=== PATIENT | male | born 1950 | race Caucasian/White ===

== ENCOUNTER 2017-07-21 17:27 | Inpatient (IN) | payer OTHER ==
[~2017-07-21] VITALS: Ht 180.3 cm; Wt 94.3 kg
[2017-07-21 17:35] LABS: BASE EXCESS -5.6 mEq/L (-3 to +3); BICARBONATE 27.3 mEq/L (22-26); CARBOXY HGB 1.2 % (0-5); COMMENTS - BLOOD GASES A+B+; DEVICE VENT; METHEMOGLOBIN 0.8 % (0-1.5); PCO2 90 mm Hg (35-45); PO2 115 mm Hg (80-100); SITE LR; pH 7.09 (7.35-7.45)
[2017-07-21 17:36] LABS: FI02 100 %; PEEP 5 CM/H20; PRES. SUPPORT 15 CM/H2O; TOTAL RESP RATE 31 resp/min
[2017-07-21 17:47] LABS: BASOPHIL (%) 0.2 % (0-1); BASOPHIL COUNT 0.1 K/uL (0-0.1); EOSINOPHIL (%) 1.2 % (0-5); EOSINOPHIL COUNT 0.2 K/uL (0-0.3); HEMATOCRIT 52.1 % (38.0-50.0); HEMOGLOBIN 17.1 G/DL (12.5-16.6); IMMATURE GRANULOCYTE (%) 0.6 % (0.0-0.7); LYMPHOCYTE (%) 14.3 % (15-42); LYMPHOCYTE COUNT 2.9 K/uL (1.0-2.8); MCH 29.4 PG (29.0-34.0); MCHC 32.8 G/DL (30.0-36.0); MCV 89.7 FL (86-99); MONOCYTE (%) 8.3 % (3-12); MONOCYTE COUNT 1.7 K/uL (0-0.8); NEUTROPHIL (%) 75.4 % (45-76); NEUTROPHIL COUNT 15.4 K/uL (1.8-6.4); PLATELET COUNT 186 K/uL (156-360); RBC DIS.WIDTH-CV 13.1 % (11.8-14.6); RBC DIS.WIDTH-SD 42.9 % (39-53); RED BLOOD COUNT 5.81 M/uL (4.00-5.50); WHITE BLOOD COUNT 20.5 K/uL (4.1-10.2)
[2017-07-21 18:07] LABS: TROP-I INTERPRETATION POSITIVE
[2017-07-21 18:12] LABS: TROPONIN-I 1.23 ng/mL (0.0-0.30)
[2017-07-21 18:15] LABS: CHLORIDE 102 mEq/L (99-109)
[2017-07-21 18:16] LABS: SODIUM 134 mEq/L (136-147)
[2017-07-21 18:17] LABS: GLUCOSE 207 mg/dL (70-99)
[2017-07-21 18:21] LABS: CREATININE 1.3 mg/dL (0.6-1.3); GFR ESTIMATE (CALCULATED) > 59 mL/min/ (58.99-99999)
[2017-07-21 18:22] LABS: UREA NITROGEN (BUN) 23 mg/dL (9-23)
[2017-07-21 18:23] LABS: POTASSIUM 6.1 mEq/L (3.7-5.4)
[2017-07-21 21:00] VITALS: BP 100/60
[2017-07-21 21:30] VITALS: BP 112/61
[2017-07-21 21:45] LABS: INTER. NORMALIZED RATIO 1.4
[2017-07-21 21:58] LABS: PTT 142.1 SEC (25-37)
[2017-07-21 22:00] VITALS: BP 111/58
[2017-07-21 22:30] VITALS: BP 107/60
[2017-07-21 22:45] LABS: BASE EXCESS -2.3 mEq/L (-3 to +3); BICARBONATE 24.2 mEq/L (22-26); CARBOXY HGB 0.6 % (0-5); DEVICE 980; FI02 100 %; MECHANICAL RATE 18 resp/min; METHEMOGLOBIN 1.3 % (0-1.5); MODE AC; PCO2 47 mm Hg (35-45); PEEP 6 CM/H20; PO2 458 mm Hg (80-100); SITE R ALINE; TIDAL VOLUME 540 ML; TOTAL RESP RATE 18 resp/min; pH 7.32 (7.35-7.45)
[2017-07-21 23:00] VITALS: BP 108/57
[2017-07-21 23:30] VITALS: BP 105/61
[2017-07-22] VITALS (28 sets, daily range): BP systolic 0–152; BP diastolic 0–73
[2017-07-22 00:58] LABS: CREATINE KINASE 812 IU/L (1-294); TOTAL CK 812 IU/L (1-294)
[2017-07-22 01:07] LABS: TROP-I INTERPRETATION POSITIVE; TROPONIN-I 35.09 ng/mL (0.0-0.30)
[2017-07-22 01:08] LABS: CK-MB 46.5 ng/mL (0.0-4.9); CKMB RELATIVE INDEX 5.7 (0.0-3.9)
[2017-07-22 05:08] LABS: BASE EXCESS -3.9 mEq/L (-3 to +3); BICARBONATE 21.6 mEq/L (22-26); CARBOXY HGB 0.8 % (0-5); METHEMOGLOBIN 1.6 % (0-1.5); pH 7.34 (7.35-7.45)
[2017-07-22 05:09] LABS: COMMENTS - BLOOD GASES C+A+; DEVICE VENTILATOR; FI02 30 %; MECHANICAL RATE 18 resp/min; MODE A/C; PCO2 40 mm Hg (35-45); PEEP 5 CM/H20; PO2 94 mm Hg (80-100); SITE R FEMORAL A LINE; TIDAL VOLUME 540 ML; TOTAL RESP RATE 20 resp/min
[2017-07-22 06:32] LABS: TROP-I INTERPRETATION POSITIVE; TROPONIN-I 26.43 ng/mL (0.0-0.30)
[2017-07-22 06:49] LABS: BASOPHIL (%) 0.1 % (0-1); CHLORIDE 106 MEQ/L (99-109); CREATINE KINASE 653 IU/L (1-294); CREATININE 1.4 MG/DL (0.6-1.3); EOSINOPHIL (%) 0 % (0-5); GFR ESTIMATE (CALCULATED) 54 mL/min/ (58.99-99999); GLUCOSE 243 mg/dL (70-99); HDL CHOLESTEROL 24 MG/DL (Desirable>=40); HEMATOCRIT 40.7 % (38.0-50.0); HEMOGLOBIN 13.1 G/DL (12.5-16.6); IMMATURE GRANULOCYTE (%) 0.7 % (0.0-0.7); LDL CHOLESTEROL 95 mg/dL (Desirable<100); LYMPHOCYTE (%) 5.6 % (15-42); LYMPHOCYTE COUNT 0.8 K/uL (1.0-2.8); MAGNESIUM 1.8 mg/dl (1.3-2.7); MCH 28.5 PG (29.0-34.0); MCHC 32.2 G/DL (30.0-36.0); MCV 88.5 FL (86-99); MONOCYTE (%) 3.6 % (3-12); MONOCYTE COUNT 0.5 K/uL (0-0.8); NEUTROPHIL COUNT 12.3 K/uL (1.8-6.4); NON-HDL CHOLESTEROL 114 mg/dL (Desirable<160); PHOSPHORUS 3.6 mg/dL (2.5-4.9); PLATELET COUNT 141 K/uL (156-360); RBC DIS.WIDTH-CV 12.9 % (11.8-14.6); RBC DIS.WIDTH-SD 41.8 % (39-53); SODIUM 137 MEQ/L (136-147); TOTAL CHOLESTEROL 138 mg/dL (Desirable<200); TOTAL CK 653 IU/L (1-294); TRIGLYCERIDES 94 MG/DL (Normal: <150); UREA NITROGEN (BUN) 25 mg/dL (9-23); WHITE BLOOD COUNT 13.7 K/uL (4.1-10.2)
[2017-07-22 06:51] LABS: POTASSIUM 4.5 MEQ/L (3.7-5.4)
[2017-07-22 07:09] LABS: Estimated Average Glucose 134 mg/dL (70-123); HEMOGLOBIN A1c (GLYCOHEMOGLOB) 6.3 % HGB (Below 5.7)
[2017-07-22 08:25] LABS: CK-MB 45.8 ng/mL (0.0-4.9)
[2017-07-22] MEDS ORDERED: FLOMAX0.4 MG PO (12:19)
[2017-07-22] MEDS ORDERED: CELEXA10 MG PO (12:20)
[2017-07-22] MEDS ORDERED: ERGOCALCIF50000 UNIT PO (12:20)
[2017-07-22] MEDS ORDERED: PRINIVIL10 MG PO (12:21)
[2017-07-22] MEDS ORDERED: LYRICA75 MG PO (12:23)
[2017-07-22] MEDS ORDERED: METFORMIN HCL500 MG PO (12:23)
[2017-07-22 13:05] LABS: CREATINE KINASE 486 IU/L (1-294); TOTAL CK 486 IU/L (1-294)
[2017-07-22 13:08] LABS: TROP-I INTERPRETATION POSITIVE; TROPONIN-I 16.46 ng/mL (0.0-0.30)
[2017-07-22 13:43] LABS: CK-MB 35.4 ng/mL (0.0-4.9); CKMB RELATIVE INDEX 7.3 (0.0-3.9)
[2017-07-23] VITALS (24 sets, daily range): BP systolic 84–187; BP diastolic 51–103
[2017-07-23 04:59] LABS: BASE EXCESS -1.5 mEq/L (-3 to +3); BICARBONATE 23.7 mEq/L (22-26); CARBOXY HGB 0.6 % (0-5); COMMENTS - BLOOD GASES C+A+; DEVICE VENTILATOR; FI02 30 %; MECHANICAL RATE 18 resp/min; METHEMOGLOBIN 1.3 % (0-1.5); MODE AC; PCO2 41 mm Hg (35-45); PEEP 5 CM/H20; PO2 71 mm Hg (80-100); SITE LR; TIDAL VOLUME 540 ML; TOTAL RESP RATE 22 resp/min; pH 7.37 (7.35-7.45)
[2017-07-23 06:04] LABS: BASOPHIL (%) 0.1 % (0-1); EOSINOPHIL (%) 0 % (0-5); HEMATOCRIT 39.7 % (38.0-50.0); HEMOGLOBIN 12.7 G/DL (12.5-16.6); IMMATURE GRANULOCYTE (%) 0.4 % (0.0-0.7); LYMPHOCYTE COUNT 0.9 K/uL (1.0-2.8); MCH 28.6 PG (29.0-34.0); MCV 89.4 FL (86-99); MONOCYTE (%) 3.8 % (3-12); MONOCYTE COUNT 0.4 K/uL (0-0.8); NEUTROPHIL (%) 87.7 % (45-76); NEUTROPHIL COUNT 10.1 K/uL (1.8-6.4); PLATELET COUNT 116 K/uL (156-360); RBC DIS.WIDTH-CV 13.1 % (11.8-14.6); RBC DIS.WIDTH-SD 43.2 % (39-53); RED BLOOD COUNT 4.44 M/uL (4.00-5.50); WHITE BLOOD COUNT 11.5 K/uL (4.1-10.2)
[2017-07-23 06:26] LABS: CHLORIDE 106 MEQ/L (99-109); CREATININE 1.2 MG/DL (0.6-1.3); GFR ESTIMATE (CALCULATED) > 59 mL/min/ (58.99-99999); GLUCOSE 164 mg/dL (70-99); PHOSPHORUS 3.7 mg/dL (2.5-4.9); POTASSIUM 4.7 MEQ/L (3.7-5.4); SODIUM 138 MEQ/L (136-147); UREA NITROGEN (BUN) 28 mg/dL (9-23)
[2017-07-23 16:29] LABS: BASE EXCESS -3.2 mEq/L (-3 to +3); BICARBONATE 25.8 mEq/L (22-26); CARBOXY HGB 0.3 % (0-5); METHEMOGLOBIN 1.6 % (0-1.5)
[2017-07-23 16:30] LABS: COMMENTS - BLOOD GASES A+C+; PCO2 63 mm Hg (35-45); PO2 426 mm Hg (80-100); SITE RR; pH 7.22 (7.35-7.45)
[2017-07-23 16:31] LABS: DEVICE VENT; FI02 100 %; MECHANICAL RATE 10 resp/min; MODE A/C; PEEP 5 CM/H20; TIDAL VOLUME 500 ML; TOTAL RESP RATE 17 resp/min
[2017-07-24] VITALS (24 sets, daily range): BP systolic 99–136; BP diastolic 56–72
[2017-07-25] VITALS (22 sets, daily range): BP systolic 105–142; BP diastolic 50–73
[2017-07-25 06:03] LABS: HEMATOCRIT 39.8 % (38.0-50.0); HEMOGLOBIN 12.7 G/DL (12.5-16.6); MCH 29.1 PG (29.0-34.0); MCHC 31.9 G/DL (30.0-36.0); MCV 91.1 FL (86-99); PLATELET COUNT 134 K/uL (156-360); RBC DIS.WIDTH-CV 13.2 % (11.8-14.6); RBC DIS.WIDTH-SD 44.1 % (39-53); RED BLOOD COUNT 4.37 M/uL (4.00-5.50); WHITE BLOOD COUNT 10.4 K/uL (4.1-10.2)
[2017-07-25 06:25] LABS: CREATININE 1.5 MG/DL (0.6-1.3); GFR ESTIMATE (CALCULATED) 50 mL/min/ (58.99-99999); GLUCOSE 191 mg/dL (70-99); SODIUM 140 MEQ/L (136-147); UREA NITROGEN (BUN) 41 mg/dL (9-23)
[2017-07-25 06:26] LABS: CHLORIDE 105 MEQ/L (99-109); MAGNESIUM 2.1 mg/dl (1.3-2.7); PHOSPHORUS 3.3 mg/dL (2.5-4.9); POTASSIUM 4.6 MEQ/L (3.7-5.4)
[2017-07-26] VITALS (24 sets, daily range): BP systolic 0–144; BP diastolic 0–72
[2017-07-26 12:17] LABS: CHLORIDE 106 MEQ/L (99-109); CREATININE 1.3 MG/DL (0.6-1.3); GFR ESTIMATE (CALCULATED) > 59 mL/min/ (58.99-99999); POTASSIUM 4.8 MEQ/L (3.7-5.4); SODIUM 139 MEQ/L (136-147); UREA NITROGEN (BUN) 56 mg/dL (9-23)
[2017-07-26 12:23] LABS: GLUCOSE 295 mg/dL (70-99)
[2017-07-27] VITALS (24 sets, daily range): BP systolic 108–169; BP diastolic 51–78
[2017-07-27 06:01] LABS: CHLORIDE 103 MEQ/L (99-109); CREATININE 1.3 MG/DL (0.6-1.3); GFR ESTIMATE (CALCULATED) > 59 mL/min/ (58.99-99999); GLUCOSE 348 mg/dL (70-99); POTASSIUM 4.6 MEQ/L (3.7-5.4); SODIUM 141 MEQ/L (136-147); UREA NITROGEN (BUN) 52 mg/dL (9-23)
[2017-07-27 15:09] LABS: BASE EXCESS 8.7 mEq/L (-3 to +3); CARBOXY HGB 0.8 % (0-5); METHEMOGLOBIN 1.1 % (0-1.5)
[2017-07-27 15:10] LABS: PCO2 54 mm Hg (35-45); PO2 81 mm Hg (80-100); SITE RR; pH 7.42 (7.35-7.45)
[2017-07-27 15:11] LABS: CONTINUOUS POS AIRWAY PRESSURE 5 cm H2O; DEVICE VENT; FI02 30 %; MODE SPONT; PRES. SUPPORT 7 CM/H2O; TOTAL RESP RATE 30 resp/min
[2017-07-28] VITALS (15 sets, daily range): BP systolic 129–164; BP diastolic 59–80
[2017-07-28 06:30] LABS: CHLORIDE 101 MEQ/L (99-109); GFR ESTIMATE (CALCULATED) > 59 mL/min/ (58.99-99999); GLUCOSE 114 mg/dL (70-99); MAGNESIUM 2.2 mg/dl (1.3-2.7); PHOSPHORUS 3.7 mg/dL (2.5-4.9); POTASSIUM 4.1 MEQ/L (3.7-5.4); SODIUM 146 MEQ/L (136-147); UREA NITROGEN (BUN) 41 mg/dL (9-23)
[2017-07-29 00:40] VITALS: BP 138/63
[2017-07-29 03:54] VITALS: BP 156/68
[2017-07-29 08:38] VITALS: BP 147/67
[2017-07-29 12:01] VITALS: BP 140/64
[2017-07-29 16:27] VITALS: BP 148/68
[2017-07-29 21:37] VITALS: BP 175/82
[2017-07-30 00:12] VITALS: BP 152/85
[2017-07-30 04:06] VITALS: BP 152/85
[2017-07-30 07:02] LABS: BASOPHIL (%) 0.1 % (0-1); EOSINOPHIL (%) 0.8 % (0-5); EOSINOPHIL COUNT 0.1 K/uL (0-0.3); HEMATOCRIT 45.8 % (38.0-50.0); HEMOGLOBIN 14.9 G/DL (12.5-16.6); IMMATURE GRANULOCYTE (%) 0.7 % (0.0-0.7); LYMPHOCYTE (%) 13.7 % (15-42); LYMPHOCYTE COUNT 1.7 K/uL (1.0-2.8); MCH 28.5 PG (29.0-34.0); MCHC 32.5 G/DL (30.0-36.0); MCV 87.7 FL (86-99); MONOCYTE COUNT 1.4 K/uL (0-0.8); NEUTROPHIL (%) 73.7 % (45-76); NEUTROPHIL COUNT 9.3 K/uL (1.8-6.4); PLATELET COUNT 178 K/uL (156-360); RBC DIS.WIDTH-CV 12.7 % (11.8-14.6); RBC DIS.WIDTH-SD 39.8 % (39-53); RED BLOOD COUNT 5.22 M/uL (4.00-5.50); WHITE BLOOD COUNT 12.6 K/uL (4.1-10.2)
[2017-07-30 07:18] LABS: CHLORIDE 101 MEQ/L (99-109); CREATININE 0.8 MG/DL (0.6-1.3); GFR ESTIMATE (CALCULATED) > 59 mL/min/ (58.99-99999); GLUCOSE 151 mg/dL (70-99); POTASSIUM 4.1 MEQ/L (3.7-5.4); SODIUM 143 MEQ/L (136-147); UREA NITROGEN (BUN) 29 mg/dL (9-23)
[2017-07-30 08:11] VITALS: BP 148/67
[2017-07-30 12:02] VITALS: BP 104/57
[2017-07-30 16:50] VITALS: BP 132/66
[2017-07-30 19:43] VITALS: BP 132/64
[2017-07-31 00:15] VITALS: BP 136/71
[2017-07-31 04:13] VITALS: BP 134/59
[2017-07-31 08:24] VITALS: BP 131/84
[2017-07-31 12:36] VITALS: BP 136/88
[2017-07-31] MEDS ORDERED: NICOTINE PATCH1 EAC2 TD (14:23)
[2017-07-31] MEDS ORDERED: ATORVASTATIN CA80 MG GT (14:23)
[2017-07-31] MEDS ORDERED: BRILINTA90 MG GT (14:23)
[2017-07-31] MEDS ORDERED: CARVEDILOL6.25 MG PO (14:23)
[2017-07-31] MEDS ORDERED: ASPIRIN81 M2 GT (14:24)
[2017-07-31] MEDS ORDERED: MAG-AL PLUS SUS30 ML GT (14:24)
[2017-07-31] MEDS ORDERED: DOCU LIQUI50 MG/5 ML GT (14:24)
[2017-07-31] MEDS ORDERED: FUROSEMIDE20 MG PO (14:24)
[2017-07-31] MEDS ORDERED: FAMOTIDINE20 MG GT (14:25)
[2017-07-31] MEDS ORDERED: NOVOLOG PE100 UNITS/ SC (14:26)
[2017-07-31] MEDS ORDERED: Remove Nicotine Patc TD (14:28)
[2017-07-31] MEDS ORDERED: PREDNISONE5 MG PO (14:28)
[2017-07-31] MEDS ORDERED: LEVEMIR100 UNIT/2 SC (14:28)
[2017-07-31] MEDS ORDERED: HEPARIN SO5000 UNIT4 SC (17:12)
[2017-07-31] MEDS ORDERED: NITROSTAT0.4 MG SL (17:17)
== END 2017-07-31 15:50 | DRG 981 ==
LOC: EME 17:27 → CATH 19:45 → ENRESERV 20:36 → EDBD 20:38 → 4WEST 20:38 → 5SOUTH 20:38 → 4WEST 22:19 → ENRESERV 07-28 11:04 → 5SOUTH 07-28 16:21
PROVIDERS: Emergency Medicine; Family Medicine; Internal Medicine; Internal Medicine Cardiovascular Disease; Internal Medicine Pulmonary Disease; Specialist
PROC: 0BH17EZ Insertion of Endotracheal Airway into Trachea, Via Natural or Artificial Opening (ICD-10-PCS; principal; 2017-07-21)
PROC: 5A09357 Assistance with Respiratory Ventilation, Less than 24 Consecutive Hours, Continuous Positive Airway Pressure (ICD-10-PCS; principal; 2017-07-21)
PROC: 5A1955Z Respiratory Ventilation, Greater than 96 Consecutive Hours (ICD-10-PCS; principal; 2017-07-21)
PROC: B2151ZZ Fluoroscopy of Left Heart using Low Osmolar Contrast (ICD-10-PCS; principal; 2017-07-21)
PROC: B2111ZZ Fluoroscopy of Multiple Coronary Arteries using Low Osmolar Contrast (ICD-10-PCS; principal; 2017-07-21)
PROC: 4A023N7 Measurement of Cardiac Sampling and Pressure, Left Heart, Percutaneous Approach (ICD-10-PCS; principal; 2017-07-21)
PROC: 027034Z Dilation of Coronary Artery, One Artery with Drug-eluting Intraluminal Device, Percutaneous Approach (ICD-10-PCS; principal; 2017-07-21)
DX: J96.00 Acute respiratory failure, unspecified whether with hypoxia or hypercapnia (principal); I21.09 ST elevation (STEMI) myocardial infarction involving other coronary artery of anterior wall; J10.01 Influenza due to other identified influenza virus with the same other identified influenza virus pneumonia; R57.0 Cardiogenic shock; J18.9 Pneumonia, unspecified organism; J44.0 Chronic obstructive pulmonary disease with (acute) lower respiratory infection; J44.1 Chronic obstructive pulmonary disease with (acute) exacerbation; J10.00 Influenza due to other identified influenza virus with unspecified type of pneumonia; E11.9 Type 2 diabetes mellitus without complications; N17.9 Acute kidney failure, unspecified; E78.5 Hyperlipidemia, unspecified; F32.9 Major depressive disorder, single episode, unspecified; I25.5 Ischemic cardiomyopathy; I10 Essential (primary) hypertension; F17.200 Nicotine dependence, unspecified, uncomplicated; R79.1 Abnormal coagulation profile
CPT/HCPCS: 36600; 71045; 80048; 80061; 82550; 82550 91; 82553; 82803; 82948; 83036; 83605; 83735; 84100; 84484; 85025; 85027; 85347; 85610; 85730; 87070; 87205; 87502; 87641; 93005; 93306; 94002; 94003; 94799; 97530 GP; 99281; 99285; C1725; C1769; C1874; C1887; C1894; J0330; J0456; J1644; J1815; J1940; J2250; J2543; J2704; J2920; J2930; J3010; J3370; J7030; J7050; J7120; J7512

== ENCOUNTER 2017-07-31 14:43 | Inpatient (IN) | payer OTHER ==
[~2017-07-31] VITALS: Ht 180.3 cm; Wt 89.8 kg
[~2017-07-31 14:43] MED LIST: ASPIRIN81 M2 GT; ATORVASTATIN CA80 MG GT; BRILINTA90 MG GT; CARVEDILOL6.25 MG PO; CELEXA10 MG PO; DOCU LIQUI50 MG/5 ML GT; ERGOCALCIF50000 UNIT PO; FAMOTIDINE20 MG GT; FLOMAX0.4 MG PO; FUROSEMIDE20 MG PO; LEVEMIR100 UNIT/2 SC; LYRICA75 MG PO; MAG-AL PLUS SUS30 ML GT; METFORMIN HCL500 MG PO; NICOTINE PATCH1 EAC2 TD; NOVOLOG PE100 UNITS/ SC; PREDNISONE5 MG PO; PRINIVIL10 MG PO; Remove Nicotine Patc TD
[2017-07-31 16:31] VITALS: BP 112/82
[2017-07-31] MEDS ORDERED: HEPARIN SO5000 UNIT4 SC (17:12)
[2017-07-31] MEDS ORDERED: NITROSTAT0.4 MG SL (17:17)
[2017-08-01 00:44] VITALS: BP 115/55
[2017-08-01 06:06] VITALS: BP 122/55
[2017-08-01 06:14] LABS: HEMATOCRIT 43.6 % (38.0-50.0); HEMOGLOBIN 14.4 G/DL (12.5-16.6); MCH 29.2 PG (29.0-34.0); MCV 88.4 FL (86-99); PLATELET COUNT 157 K/uL (156-360); RBC DIS.WIDTH-CV 13.2 % (11.8-14.6); RBC DIS.WIDTH-SD 41.7 % (39-53); RED BLOOD COUNT 4.93 M/uL (4.00-5.50); WHITE BLOOD COUNT 12.5 K/uL (4.1-10.2)
[2017-08-01 06:41] LABS: ALBUMIN 3.1 G/DL (3.2-4.8); ALKALINE PHOSPHATASE 56 IU/L (3-129); ALT (GPT) 19 IU/L (3-49); AST (GOT) 28 IU/L (2-34); CHLORIDE 103 MEQ/L (99-109); CREATININE 0.9 MG/DL (0.6-1.3); GFR ESTIMATE (CALCULATED) > 59 mL/min/ (58.99-99999); GLUCOSE 183 mg/dL (70-99); POTASSIUM 4.5 MEQ/L (3.7-5.4); SODIUM 142 MEQ/L (136-147); TOTAL BILIRUBIN 0.9 MG/DL (0.0-1.0); TOTAL PROTEIN 6.1 G/DL (6.4-8.3); UREA NITROGEN (BUN) 35 mg/dL (9-23)
[2017-08-01 14:59] VITALS: BP 123/63
[2017-08-02 06:04] VITALS: BP 161/70
[2017-08-02 15:01] VITALS: BP 11/56
[2017-08-03 06:25] VITALS: BP 148/68
[2017-08-03 15:27] VITALS: BP 115/57
[2017-08-04 05:45] VITALS: BP 127/60
[2017-08-04 15:51] VITALS: BP 125/59
[2017-08-05 04:59] VITALS: BP 103/50
[2017-08-05 16:00] VITALS: BP 124/60
[2017-08-06 06:15] VITALS: BP 129/62
[2017-08-06 15:09] VITALS: BP 140/64
[2017-08-07 05:38] VITALS: BP 131/61
[2017-08-07 15:30] VITALS: BP 116/57
[2017-08-08 04:55] VITALS: BP 141/65
[2017-08-08 15:34] VITALS: BP 128/58
[2017-08-09 06:29] VITALS: BP 120/55
[2017-08-09 15:00] VITALS: BP 119/57
[2017-08-09 19:31] LABS: HEMATOCRIT 41.6 % (38.0-50.0); HEMOGLOBIN 13.5 G/DL (12.5-16.6); MCHC 32.5 G/DL (30.0-36.0); MCV 89.3 FL (86-99); PLATELET COUNT 156 K/uL (156-360); RBC DIS.WIDTH-CV 13.9 % (11.8-14.6); RBC DIS.WIDTH-SD 44.7 % (39-53); RED BLOOD COUNT 4.66 M/uL (4.00-5.50); WHITE BLOOD COUNT 11.8 K/uL (4.1-10.2)
[2017-08-09 19:53] LABS: CHLORIDE 100 MEQ/L (99-109); CREATININE 1.3 MG/DL (0.6-1.3); GFR ESTIMATE (CALCULATED) > 59 mL/min/ (58.99-99999); GLUCOSE 292 mg/dL (70-99); POTASSIUM 5.6 MEQ/L (3.7-5.4); SODIUM 132 MEQ/L (136-147); UREA NITROGEN (BUN) 39 mg/dL (9-23)
[2017-08-10 04:22] VITALS: BP 113/56
[2017-08-10] MEDS ORDERED: SPIRIVA RESPIMAT4 GM IH (11:14)
[2017-08-10] MEDS ORDERED: CELEXA10 MG PO (11:14)
[2017-08-10] MEDS ORDERED: FUROSEMIDE20 MG PO (11:14)
[2017-08-10] MEDS ORDERED: CARVEDILOL6.25 MG PO (11:14)
[2017-08-10] MEDS ORDERED: NICOTINE PATCH1 EAC2 TD (11:14)
[2017-08-10] MEDS ORDERED: FLOMAX0.4 MG PO (11:14)
[2017-08-10] MEDS ORDERED: ASPIRIN81 M2 PO (11:14)
[2017-08-10] MEDS ORDERED: BRILINTA90 MG GT (11:14)
[2017-08-10] MEDS ORDERED: ERGOCALCIF50000 UNIT PO (11:14)
[2017-08-10] MEDS ORDERED: LEVEMIR100 UNIT/2 SC (11:14)
[2017-08-10] MEDS ORDERED: FAMOTIDINE20 MG PO (11:14)
[2017-08-10] MEDS ORDERED: Salonpas 4% Patch TD (11:14)
[2017-08-10] MEDS ORDERED: NITROSTAT0.4 MG SL (11:14)
[2017-08-10] MEDS ORDERED: ATORVASTATIN CA80 MG GT (11:14)
[2017-08-10] MEDS ORDERED: LISINOPRIL20 MG PO (11:14)
[2017-08-10] MEDS ORDERED: PREDNISONE5 MG PO (11:14)
[2017-08-10] MEDS ORDERED: LYRICA50 MG PO (11:25)
[2017-08-10 12:31] LABS: CHLORIDE 104 MEQ/L (99-109); POTASSIUM 4.9 MEQ/L (3.7-5.4); SODIUM 136 MEQ/L (136-147)
[2017-08-10 12:49] LABS: GFR ESTIMATE (CALCULATED) > 59 mL/min/ (58.99-99999); GLUCOSE 95 mg/dL (70-99); UREA NITROGEN (BUN) 38 mg/dL (9-23)
== END 2017-08-10 13:02 | disposition home health service (06) | DRG 945 ==
LOC: 3WEST 14:43 → EDBD 16:12 → 3WEST 16:12 → ENPENDDIS 08-10 → 3WEST 08-10 13:02
PROVIDERS: Physical Medicine & Rehabilitation Pain Medicine
PROC: F07M0ZZ Range of Motion and Joint Mobility Treatment of Musculoskeletal System - Whole Body (ICD-10-PCS; principal; 2017-07-31)
DX: R53.1 Weakness (principal); I21.3 ST elevation (STEMI) myocardial infarction of unspecified site; E78.5 Hyperlipidemia, unspecified; F32.9 Major depressive disorder, single episode, unspecified; F17.200 Nicotine dependence, unspecified, uncomplicated; I27.20 Pulmonary hypertension, unspecified; I08.0 Rheumatic disorders of both mitral and aortic valves; J44.9 Chronic obstructive pulmonary disease, unspecified; I10 Essential (primary) hypertension; E11.9 Type 2 diabetes mellitus without complications; I25.5 Ischemic cardiomyopathy; N17.9 Acute kidney failure, unspecified
CPT/HCPCS: 71046; 73610; 73630; 80048; 80053; 82948; 85027; 94640; 94640 76; 97110 GO; 97530 GP; J1644; J1815; J7512

== ENCOUNTER 2017-08-13 14:48 | Emergency (ER) | payer OTHER ==
[~2017-08-13] VITALS: Ht 180.3 cm; Wt 97.3 kg
[~2017-08-13 14:48] MED LIST changes: +ASPIRIN81 M2 PO; +FAMOTIDINE20 MG PO; +HEPARIN SO5000 UNIT4 SC; +LISINOPRIL20 MG PO; +LYRICA50 MG PO; +NITROSTAT0.4 MG SL; +SPIRIVA RESPIMAT4 GM IH; +Salonpas 4% Patch TD
[2017-08-13 16:31] VITALS: BP 121/50
== END 2017-08-13 16:33 | disposition home or self-care (01) ==
LOC: EME 14:48
DX: S01.01XA Laceration without foreign body of scalp, initial encounter (principal); S09.8XXA Other specified injuries of head, initial encounter; W19.XXXA Unspecified fall, initial encounter; Z23 Encounter for immunization; I25.2 Old myocardial infarction; Z95.5 Presence of coronary angioplasty implant and graft; F17.200 Nicotine dependence, unspecified, uncomplicated
CPT/HCPCS: 70450

== ENCOUNTER 2017-10-30 13:52 | Emergency (ER) | payer OTHER ==
[~2017-10-30] VITALS: Ht 180.3 cm; Wt 86.9 kg
[2017-10-30 14:13] LABS: BASOPHIL (%) 0.3 % (0-1); EOSINOPHIL (%) 3.3 % (0-5); EOSINOPHIL COUNT 0.3 K/uL (0-0.3); HEMATOCRIT 34.3 % (38.0-50.0); HEMOGLOBIN 11.3 G/DL (12.5-16.6); IMMATURE GRANULOCYTE (%) 0.5 % (0.0-0.7); LYMPHOCYTE COUNT 2.1 K/uL (1.0-2.8); MCH 29.3 PG (29.0-34.0); MCHC 32.9 G/DL (30.0-36.0); MCV 88.9 FL (86-99); MONOCYTE (%) 7.2 % (3-12); MONOCYTE COUNT 0.6 K/uL (0-0.8); NEUTROPHIL (%) 64.7 % (45-76); NEUTROPHIL COUNT 5.7 K/uL (1.8-6.4); PLATELET COUNT 196 K/uL (156-360); RBC DIS.WIDTH-CV 14.5 % (11.8-14.6); RBC DIS.WIDTH-SD 46.5 % (39-53); RED BLOOD COUNT 3.86 M/uL (4.00-5.50); WHITE BLOOD COUNT 8.9 K/uL (4.1-10.2)
[2017-10-30 14:27] LABS: AMYLASE 68 IU/L (1-118); CHLORIDE 106 mEq/L (99-109); POTASSIUM 4.6 mEq/L (3.7-5.4); SODIUM 141 mEq/L (136-147)
[2017-10-30 14:29] LABS: INTER. NORMALIZED RATIO 1.2
[2017-10-30 14:29] LABS: GLUCOSE 203 mg/dL (70-99)
[2017-10-30 14:32] LABS: PTT 27.1 SEC (25-37)
[2017-10-30 14:32] LABS: SERUM ETHYL ALCOHOL < 10 mg/dL
[2017-10-30 14:33] LABS: CREATININE 1.2 mg/dL (0.6-1.3); GFR ESTIMATE (CALCULATED) > 59 mL/min/ (58.99-99999)
[2017-10-30 14:34] LABS: TROP-I INTERPRETATION NEGATIVE; TROPONIN-I 0.03 ng/mL (0.0-0.30); UREA NITROGEN (BUN) 19 mg/dL (9-23)
[2017-10-30 14:36] LABS: LIPASE 50 U/L (1.0-51.0)
[2017-10-30 15:36] LABS: APPEARANCE CLOUDY ((CLEAR)); BILIRUBIN NEGATIVE; BLOOD SMALL; COLOR YELLOW ((YELLOW)); GLUCOSE (STRIP) NEGATIVE; KETONES NEGATIVE; LEUKOCYTES LARGE; NITRITE POSITIVE; PROTEIN (STRIP) 100; SPECIFIC GRAVITY 1.012 (1.000-1.030)
[2017-10-30 15:56] LABS: AMPHETAMINE NEGATIVE (500 ng/mL); BARBITURATES NEGATIVE (200 ng/mL); BENZODIAZEPINES NEGATIVE (150 ng/mL); BUPRENORPHINE NEGATIVE (10 ng/mL); COCAINE NEGATIVE (150 ng/mL); METHADONE NEGATIVE (200 ng/mL); METHAMPHETAMINE NEGATIVE (500 ng/mL); OPIATES (MORPHINE) NEGATIVE (100 ng/mL); OXYCODONE NEGATIVE (100 ng/mL); PHENCYCLIDINE NEGATIVE (25 ng/mL); PROPOXYPHENE NEGATIVE (300 ng/mL); THC CANNABINOIDS NEGATIVE (50 ng/mL); TRICYCLIC ANTIDEPRESSANTS NEGATIVE (300 ng/mL)
[2017-10-30 16:05] LABS: RED BLOOD CELLS RARE /HPF (0-5); WHITE BLOOD CELLS TNTC /HPF (0-5)
[2017-10-30 16:06] LABS: BACTERIA 1+ /HPF; EPITHELIAL CELLS 1+ /HPF; MUCUS NONE SEEN /LPF; UCUL ADDED? YES
[2017-10-30 16:30] VITALS: BP 140/84
[2017-10-30] MEDS ORDERED: BACTRIM,SEPT1 TABLET PO (17:12)
[2017-10-30] MEDS ORDERED: NITROSTAT0.4 MG SL (17:49)
== END 2017-10-30 19:19 | disposition home or self-care (01) ==
LOC: EME 13:52 → ENRESERV 13:55 → CANRESERV 13:55 → ENRESERV 16:02 → CANRESERV 16:02 → EME 19:19
PROVIDERS: Emergency Medicine
DX: N39.0 Urinary tract infection, site not specified (principal); R55 Syncope and collapse; I10 Essential (primary) hypertension; R94.31 Abnormal electrocardiogram [ECG] [EKG]; I25.2 Old myocardial infarction; F17.200 Nicotine dependence, unspecified, uncomplicated
CPT/HCPCS: 71045; 80048; 81003; 82150; 83690; 84484; 85025; 85610; 85730; 86850; 86900; 86901; 87077; 87086 GA; 87186; 93005; 99281; 99285; G0480; J0696; J7030